=== PATIENT | male | born 2000 | race Caucasian/White ===

== ENCOUNTER 2020-04-28 10:24 | Emergency (ER) | payer OTHER ==
[2020-04-28 18:43] LABS: SARS-CoV-2 MS2 Positive; SARS-CoV-2 N Gene Negative; SARS-CoV-2 S Gene Negative; SARS-CoV-2 by NAA Not Detected (NotDetected); SARS-CoV-2 orf1ab Negative
== END 2020-04-28 11:20 | disposition home or self-care (01) ==
LOC: ERS 10:24
DX: R05 Cough (principal); R52 Pain, unspecified; R53.83 Other fatigue; Z20.828 Contact with and (suspected) exposure to other viral communicable diseases
CPT/HCPCS: 87635; 87804; 99283; U0003